=== PATIENT | female | born 2000 | race Hispanic/Latino ===

== ENCOUNTER 2023-10-02 21:59 | Emergency (ER) | payer MEDICAID, OTHER, SELFPAY | END 2023-10-02 22:50 | disposition home or self-care (01) | LOC: CSHERS 21:59 | DX: O99.891 Other specified diseases and conditions complicating pregnancy (principal); M54.50 Low back pain, unspecified; Z3A.14 14 weeks gestation of pregnancy; Z87.891 Personal history of nicotine dependence; W18.2XXA Fall in (into) shower or empty bathtub, initial encounter | CPT/HCPCS: 99283 ==